=== PATIENT | female | born 1970 | race Caucasian/White ===

== ENCOUNTER → 2016-08-26 | Outpatient (CLI) | payer OTHER ==
--- NOTE | 2016-08-26 13:24 | RAD ---
CT head without IV contrast 08/26/2016 at 12:58 PM Indication: Blackouts, vomiting and syncope with chest pain for 3 weeks. Comparison: None available Technique: Multiple axial CT images of the head were obtained without intravenous contrast from the skull base to the vertex. Findings: The ventricles, sulci and basal cisterns are normal in appearance. There is no loss of shannon-white matter differentiation. There is no acute intracranial hemorrhage. There is no mass, mass effect or midline shift. Posterior fossa is normal in appearance. Visualized orbits and paranasal sinuses are normal. Mastoid air cells are well aerated. No evidence for calvarial fracture. Impression: No acute intracranial abnormality. PQRS Compliance Statement: One or more of the following individualized dose reduction techniques were utilized for this examination: 1. Automated exposure control 2. Adjustment of the mA and/or kV according to patient size 3. Use of iterative reconstruction technique
== END | disposition home or self-care (01) ==
LOC: CT 12:31
PROVIDERS: ATTEND General Practice
DX: R55 Syncope and collapse (principal); R07.9 Chest pain, unspecified
CPT/HCPCS: 70450

== ENCOUNTER → 2016-11-04 | Outpatient (CLI) | payer OTHER ==
--- NOTE | 2016-11-04 09:01 | RAD ---
Indication:Right upper quadrant pain nausea and vomiting Grayscale images of the abdomen were obtained. Comparison none Liver:There is some increased attenuation of the ultrasound beam by the liver compatible with fatty infiltration. A focal mass in the visualized liver is not seen. Gallbladder:Normal. The common bile duct diameter of approximately 4 mm is also normal Spleen:Normal Pancreas:Poorly visualized and largely obscured by gas Kidneys:Normal Abdominal aorta and IVC:The most distal abdominal aorta was not well visualized and partially obscured. Those portions of the abdominal aorta which were seen appeared normal. The visualized inferior vena cava appeared normal Ancillary findings:None Impression:No acute finding Fatty infiltration of the liver
== END | disposition home or self-care (01) ==
LOC: US 07:55
PROVIDERS: ATTEND General Practice
DX: K76.0 Fatty (change of) liver, not elsewhere classified (principal)
CPT/HCPCS: 76700

== ENCOUNTER → 2017-03-28 | Outpatient (CLI) | payer OTHER ==
[~2017-03-28] VITALS: Ht 165.1 cm; Wt 99.8 kg
[~2017-03-28] MED LIST: BUSP10TA PO; FLUO40CA2 PO; FURO-69 PO; LAMO200T2 PO; LEVO112T4 PO; LISI1TAB5 PO; METO50TA29 PO; QUET200T6 PO; SINCALIDE 2 MCG in IV NORMAL SALINE 50ML 30 ML IV ONE
--- NOTE | 2017-03-28 11:16 | RAD ---
Radionuclide hepatobiliary scan, 03/28/2017: History: Intermittent pain Following IV injection of 5.5 mCi of technetium 99m Choletec there was prompt uptake of the radionuclide from the blood stream by the liver. Bile duct and gallbladder activity is present at 15 minutes. Small bowel activity develops at 30 minutes. Additional imaging of the gallbladder was performed following IV injection of 2.0 mcg of cholecystokinin. The gallbladder ejection fraction is 6%. IMPRESSION: 1. No evidence of cystic duct or common bile duct obstruction. 2. Low gallbladder ejection fraction of 6%.
== END ==
LOC: NM 08:31
PROVIDERS: ATTEND Internal Medicine Gastroenterology
DX: R10.11 Right upper quadrant pain (principal); I10 Essential (primary) hypertension; F17.200 Nicotine dependence, unspecified, uncomplicated; Z86.73 Personal history of transient ischemic attack (TIA), and cerebral infarction without residual deficits
CPT/HCPCS: 78226; 96374; 96375; A9537; J2805

== ENCOUNTER → 2018-02-05 | Outpatient (CLI) | payer OTHER ==
[~2018-02-05] MED LIST changes: -SINCALIDE 2 MCG in IV NORMAL SALINE 50ML 30 ML IV ONE
--- NOTE | 2018-02-09 08:35 | RAD ---
DATE: 02/05/2018 3:30 PM EXAM: DIGITAL SCREEN BILAT W/CAD HISTORY: routine screening evaluation COMPARISON: None available Bilateral CC and MLO views of the breasts were performed. Bilateral breast tomosynthesis was performed in CC and MLO projections. This study was interpreted with the benefit of Computerized Aided Detection (CAD ). Breast Density: The breast parenchyma is primarily fatty replaced. Breast parenchyma level density A. FINDINGS: No suspicious masses, microcalcifications or architectural distortion is present to suggest malignancy in either breast. The visualized axillae are unremarkable. Bilateral retropectoral breast implants are seen. IMPRESSION: No mammographic evidence of malignancy. BI-RADS CATEGORY: 1 NEGATIVE RECOMMENDED FOLLOW-UP: 12M 12 MONTH FOLLOW-UP Annual screening mammography is recommended, unless clinically indicated sooner based on symptoms or change in physical exam. PQRS compliance statement: Patient information was entered into a reminder system with a target due date 02/06/2019 for the next mammogram. Mammography is a sensitive method for finding small breast cancers, but it does not detect them all and is not a substitute for careful clinical examination. A negative mammogram does not negate a clinically suspicious finding and should not result in delay in biopsying a clinically suspicious abnormality. "Our facility is accredited by the [employer] Mammography Program." MTDD
== END | disposition home or self-care (01) ==
LOC: MAMMO 13:19
PROVIDERS: ATTEND Registered Nurse
DX: Z12.31 Encounter for screening mammogram for malignant neoplasm of breast (principal)
CPT/HCPCS: 77067

== ENCOUNTER → 2018-10-06 | Outpatient (CLI) | payer OTHER ==
[~2018-10-06] MED LIST changes: -QUET200T6 PO; +QUET200T7 PO
--- NOTE | 2018-10-06 15:55 | RAD ---
Indication: Lump on the right arm TECHNIQUE: Limited scan of the right forearm in the region of palpable abnormality. COMPARISON: None FINDINGS/ impression: No sonographic abnormality seen in the region of palpable lump. Skin is normal in thickness. Electronically signed by: Moises Hansen DO (10/06/2018 3:52 PM) [facility]
== END | disposition home or self-care (01) ==
LOC: US 14:43
PROVIDERS: ATTEND Registered Nurse
DX: R22.30 Localized swelling, mass and lump, unspecified upper limb (principal)
CPT/HCPCS: 76881

== ENCOUNTER → 2019-01-21 | Outpatient (CLI) | payer OTHER ==
[~2019-01-21] MED LIST changes: -LAMO200T2 PO; +LAMO200T6 PO; +LISI1TAB19 PO; -LISI1TAB5 PO
--- NOTE | 2019-01-21 13:37 | RAD ---
EXAM: Pelvic sonogram. HISTORY: Irregular menses. TECHNIQUE: Transabdominal and transvaginal sonographic imaging of the pelvis was performed. COMPARISON: None. FINDINGS: The uterus measures 7.9 x 3.8 x 4.0 cm. The endometrial stripe measures 9 mm. The ovaries are obscured due to bowel gas. There is trace fluid within the endocervical canal. There is no pelvic free fluid. IMPRESSION: 1. Endometrial thickness of 9 mm. This is within normal limits if the patient is premenopausal. 2. Nonspecific trace fluid within the endocervical canal, possibly due to blood products. 3. Obscured ovaries. Electronically signed by: Samantha Martell MD (01/21/2019 1:34 PM) [id number]
== END | disposition home or self-care (01) ==
LOC: US 11:07
PROVIDERS: ATTEND Registered Nurse
DX: N94.6 Dysmenorrhea, unspecified (principal); N92.6 Irregular menstruation, unspecified
CPT/HCPCS: 76830; 76856